=== PATIENT | male | born 1990 | race African-American/Black ===

== ENCOUNTER 2021-06-05 01:32 | Emergency (ER) | payer OTHER ==
[2021-06-05 01:52] VITALS: BMI 24.3
[2021-06-05] MEDS ORDERED: HALOPERIDOL LACTATE 5 MG/ML IM ONE (01:52)
[2021-06-05] MEDS ORDERED: LORazepam 2 MG/ML SDV VIAL IM ONE (01:52)
[2021-06-05] MEDS ORDERED: DEXTROSE 5%-LACTATED RINGERS 1,000 ML IV SCH (02:00)
[2021-06-05 03:48] LABS: VENOUS BASE EXCESS -3.4 mmol/L (-2-2); VENOUS O2 SATURATION 86.7 % (70-80); VENOUS PH 7.298 (7.310-7.410)
[2021-06-05 03:51] LABS: BASO % 0.6 % (0-2.0); EOS % 0.8 % (0-4.5); HEMATOCRIT 41.9 % (35.4-49); HEMOGLOBIN 14.2 GM/dL (11.7-16.9); LYMPH % 31.4 % (8-40); MCH 32.4 pg (25.7-33.7); MCHC 33.9 g/dl (32.0-35.9); MEAN CELL VOLUME 95.5 fl (80-96); MEAN PLT VOLUME 9.4 fl (7.5-11.1); MONO % 6.4 % (3.8-10.2); NEUT % 60.8 % (42.8-82.8); PLATELET COUNT 250 10^3/uL (134-434); RBC 4.39 M/mm3 (4.00-5.60); RDW 13.3 % (11.9-15.9); WHITE BLOOD COUNT 7.1 K/mm3 (4.0-10.0)
[2021-06-05 04:12] LABS: CHLORIDE 105 mmol/L (98-107); SODIUM 140 mmol/L (136-145)
[2021-06-05 04:14] LABS: CALCIUM 9.2 mg/dL (8.5-10.1)
[2021-06-05 04:16] LABS: ALBUMIN 4.3 g/dl (3.4-5.0); ANION GAP 8 MMOL/L (8-16); BLOOD UREA NITROGEN 13.9 mg/dL (7-18); CO2 28 mmol/L (21-32); GLUCOSE,RANDOM 97 mg/dL (74-106); MAGNESIUM 2.4 mg/dL (1.8-2.4)
[2021-06-05 04:18] LABS: CREATININE 0.7 mg/dL (0.55-1.3); SGOT/AST 40 U/L (15-37); SGPT/ALT 32 U/L (13-61)
[2021-06-05 04:19] LABS: BILIRUBIN,TOTAL 0.2 mg/dL (0.2-1); TOT PROT 7.8 g/dl (6.4-8.2)
[2021-06-05 04:22] LABS: ALK PHOS 102 U/L (45-117)
[2021-06-05 10:08] VITALS: TEMP 98.1
[2021-06-05] MEDS ORDERED: ACETAMINOPHEN 325 MG TABLET (FP) PO ONE (10:17)
[2021-06-05] MEDS ORDERED: ACETAMINOPHEN 325 MG TABLET (FP) ONE (10:40)
[2021-06-05 13:42] VITALS: BP 141/92; PULSE 98
== END 2021-06-05 13:45 | disposition home or self-care (01) ==
LOC: JER 01:32
PROC: 3E023NZ Introduction of Analgesics, Hypnotics, Sedatives into Muscle, Percutaneous Approach (ICD-10-PCS; principal; 2021-06-05)
DX: R41.82 Altered mental status, unspecified (principal)
CPT/HCPCS: 36415; 80053; 82550; 82553; 82803; 82962; 83735; 84484; 85025; 99284-25